=== PATIENT | male | born 1985 | race Caucasian/White ===

== ENCOUNTER 2017-11-26 14:51 | Emergency (ER) | payer SELFPAY ==
[~2017-11-26] VITALS: Ht 175.3 cm; Wt 84.1 kg
[2017-11-26 14:58] VITALS: Ht 175.3 cm; Wt 84.1 kg
[2017-11-26 15:35] LABS: BASOPHILS 0.5 % (0-2); EOSINOPHILS 1.1 % (0-7); HEMATOCRIT 45.1 % (42.0-54.0); HEMOGLOBIN 15.9 g/dL (13.5-17.5); IMMATURE GRANULOCYTES 0.2 % (0-5); LYMPHOCYTES 16.8 % (15-50); MCH 33.1 pg (26.0-34.0); MCHC 35.3 g/dL (31.0-37.0); MCV 93.8 fL (80.0-100.0); MEAN PLATELET VOLUME 9.6 fL (7.4-10.4); NEUTROPHILS 63.4 % (40-80); PLATELET COUNT 230 10x3/uL (130-400); RBC 4.81 10x6/uL (4.20-6.10); RDW 12.2 % (11.5-14.5); WBC 10.1 10x3/uL (4.8-10.8)
[2017-11-26 16:09] LABS: ALBUMIN 3.5 g/dL (3.4-5.0); ALKALINE PHOSPHATASE 100 U/L (46-116); ALT (SGPT) 67 U/L (10-68); BILIRUBIN - TOTAL 0.34 mg/dL (0.2-1.3); CALC OSMOLALITY 263 mosm/kg (275-300); CALCIUM 8.4 mg/dL (8.5-10.1); CHLORIDE - SERUM 101 mmol/L (98-107); CREATININE - SERUM 1.1 mg/dL (0.6-1.3); GLUCOSE 86 mg/dL (74-106); POTASSIUM - SERUM 3.7 mmol/L (3.5-5.1); PROTEIN - SERUM 7.7 g/dL (6.4-8.2); SODIUM 134 mmol/L (136-145); UREA NITROGEN 4 mg/dL (7-18); eGFR NON AFRICAN AMERICAN 83 mL/min (90-120)
[2017-11-26] MEDS ORDERED: PROAIR HFA8.5 GM INH (17:13)
[2017-11-26] MEDS ORDERED: CIPRO500 MG PO (17:13)
[2017-11-26] MEDS ORDERED: PHENERGAN DM SYR5 ML PO (17:13)
[2017-11-26 18:06] VITALS: BP 117/76
== END 2017-11-26 18:02 | disposition home or self-care (01) ==
LOC: D.ER 14:51 → EDSEX 14:51 → D.ER 18:02
PROVIDERS: Family Medicine
DX: J06.9 Acute upper respiratory infection, unspecified (principal); J40 Bronchitis, not specified as acute or chronic; R09.89 Other specified symptoms and signs involving the circulatory and respiratory systems; F17.200 Nicotine dependence, unspecified, uncomplicated